=== PATIENT | male | born 1970 | race Two or more races ===

== ENCOUNTER 2023-10-27 03:08 | Emergency (ER) | payer MEDICAID ==
[~2023-10-27] VITALS: Ht 162.6 cm; Wt 84.8 kg
[2023-10-27 03:30] VITALS: BP 173/91; PULSE 57; RESP 14; TEMP 97.1; O2SAT 97
== END 2023-10-27 05:50 | disposition home or self-care (01) ==
LOC: ER 03:08
DX: D18.01 Hemangioma of skin and subcutaneous tissue (principal); I10 Essential (primary) hypertension; E78.5 Hyperlipidemia, unspecified